=== PATIENT | male | born 1940 | race Caucasian/White ===

== ENCOUNTER → 2021-01-21 11:30 | Outpatient (BNVA) | payer MEDICARE, SELFPAY | PROVIDERS: PCP Family Medicine; Visit Provider Urology | DX: N40.1 Benign prostatic hyperplasia with lower urinary tract symptoms (principal); N13.8 Other obstructive and reflux uropathy | CPT/HCPCS: 99212 ==

== ENCOUNTER → 2021-01-26 09:26 | Outpatient (BNVA) | payer MEDICARE, SELFPAY | PROVIDERS: PCP Family Medicine; Visit Provider Internal Medicine Endocrinology, Diabetes & Metabolism | DX: E11.21 Type 2 diabetes mellitus with diabetic nephropathy (principal); E11.42 Type 2 diabetes mellitus with diabetic polyneuropathy; E11.22 Type 2 diabetes mellitus with diabetic chronic kidney disease; I12.9 Hypertensive chronic kidney disease with stage 1 through stage 4 chronic kidney disease, or unspecified chronic kidney disease; N18.31 Chronic kidney disease, stage 3a; E04.2 Nontoxic multinodular goiter; E78.5 Hyperlipidemia, unspecified; E55.9 Vitamin D deficiency, unspecified | CPT/HCPCS: 82947; 99212 ==

== ENCOUNTER → 2021-07-21 12:56 | Outpatient (BNVA) | payer MEDICARE, SELFPAY | PROVIDERS: PCP Family Medicine; Visit Provider Urology | DX: N40.1 Benign prostatic hyperplasia with lower urinary tract symptoms (principal); N13.8 Other obstructive and reflux uropathy | CPT/HCPCS: 51798; 99212 ==

== ENCOUNTER → 2021-10-15 08:44 | Outpatient (BNVA) | payer MEDICARE, SELFPAY | PROVIDERS: PCP Family Medicine; Visit Provider Urology | DX: N40.1 Benign prostatic hyperplasia with lower urinary tract symptoms (principal); R39.15 Urgency of urination; N13.8 Other obstructive and reflux uropathy; E11.42 Type 2 diabetes mellitus with diabetic polyneuropathy | CPT/HCPCS: 99212 ==

== ENCOUNTER → 2021-11-26 10:32 | Outpatient (BNVA) | payer MEDICARE, SELFPAY | PROVIDERS: PCP Family Medicine; Visit Provider Urology | DX: N40.1 Benign prostatic hyperplasia with lower urinary tract symptoms (principal); N13.8 Other obstructive and reflux uropathy; R39.15 Urgency of urination | CPT/HCPCS: Q3014 ==

== ENCOUNTER → 2022-01-25 08:05 | Outpatient (BNVA) | payer MEDICARE, SELFPAY | PROVIDERS: PCP Family Medicine; Visit Provider Urology | DX: N40.1 Benign prostatic hyperplasia with lower urinary tract symptoms (principal); N13.8 Other obstructive and reflux uropathy; R39.15 Urgency of urination; D17.71 Benign lipomatous neoplasm of kidney; E11.42 Type 2 diabetes mellitus with diabetic polyneuropathy | CPT/HCPCS: Q3014 ==

== ENCOUNTER 2022-01-27 12:19 | Outpatient (REF) | payer MEDICARE, SELFPAY ==
--- NOTE | ~2022-01-27 | US_ITS ---
EXAMINATION: US THYROID CLINICAL INFORMATION: Nontoxic multinodular goiter. COMPARISON: Ultrasound soft tissue head/neck thyroid dated 05/04/2020, 11/06/2019,03/08/2018. TECHNIQUE: Linear transducer grayscale and color Doppler examination with attention to the region of the thyroid. FINDINGS: SIZE: Measurements of the thyroid lobes and nodules are given in sagittal, anteroposterior and transverse dimensions respectively. Right Thyroid Lobe: 3.1 x 1.8 x 2.1 cm, volume 6.1 mL. Previously 2.9 x 1.3 x 1.4 cm, volume 2.8 mL. Parenchyma: The gland echotexture is heterogeneous. Thyroid vascularity is normal. Left Thyroid Lobe: 4.5 x 3.5 x 3.0 cm, volume 24.7 mL. Previously 3.7 x 3.1 x 2.5 cm, volume 15.0 mL. Parenchyma: The gland echotexture is homogeneous. Thyroid vascularity is increased. Isthmus: 0.4 cm in maximum AP dimension. Previously 0.3 cm. Estimated total number of nodules greater than or equal to 1 cm: 2. Senior Executive Compensation Analyst nodules are described as follows: 1. Location: Right upper. Size: 1.1 x 1.5 x 1.1 cm, volume 0.9 mL. Previously: 1.2 x 0.9 x 0.9 cm, volume 0.5 mL. Nodule characteristics: Composition: Solid/almost completely solid (2). Echogenicity: Hyperechoic (1). Shape: Taller than wide (3). Margins: Ill-defined (0). Echogenic Foci: None (0). ACR TI-RADS total points: 6 ACR TI-RADS category: 4 Significant change in size (>/= 20% in 2 dimensions and minimal increase of 2 mm or 50% or greater increase in volume): None Change in features: None Change in ACR TI-RADS risk category: Not applicable 2. Location: Left mid. Size: 3.1 x 2.9 x 2.8 cm, volume 13.2 mL. Previously: 3.0 x 2.2 x 2.4 cm, volume 8.3 mL. Nodule characteristics: Composition: Solid (2). Echogenicity: Hyperechoic (1). Shape: Taller than wide (3). Margins: Smooth (0). Echogenic Foci: None (0). ACR TI-RADS total points: 6 ACR TI-RADS category: 4 Significant change in size (>/= 20% in 2 dimensions and minimal increase of 2 mm or 50% or greater increase in volume): None Change in features: None Change in ACR TI-RADS risk category: Not applicable There are small right lobe cysts. Several nodules documented previously are not visualized at this time. NODES: No lymphadenopathy is seen in the tissue surrounding the thyroid gland. US/US thyroid IMPRESSION: Enlarged and slightly hypervascular left thyroid lobe with a heterogeneous right thyroid lobe but normal in size. Bilateral solid thyroid nodules with largest in midpole left lobe appears stable. By TI-RADS criteria a fine-needle biopsy is recommended of both nodules. 2 tiny cysts in the right lobe.
== END 2022-01-27 12:20 | disposition home or self-care (01) ==
LOC: HO.US 12:19
PROVIDERS: Visit Provider Internal Medicine Endocrinology, Diabetes & Metabolism
DX: E04.2 Nontoxic multinodular goiter (principal)
CPT/HCPCS: 76536

== ENCOUNTER → 2022-04-29 10:52 | Outpatient (BNVA) | payer MEDICARE, SELFPAY | PROVIDERS: PCP Family Medicine; Visit Provider Internal Medicine Endocrinology, Diabetes & Metabolism | DX: E11.21 Type 2 diabetes mellitus with diabetic nephropathy (principal); E04.2 Nontoxic multinodular goiter | CPT/HCPCS: 82947; 99212 ==

== ENCOUNTER → 2022-10-14 11:21 | Outpatient (BNVA) | payer MEDICARE, SELFPAY | PROVIDERS: PCP Family Medicine; Visit Provider Nurse Practitioner Family | DX: N40.1 Benign prostatic hyperplasia with lower urinary tract symptoms (principal); N13.8 Other obstructive and reflux uropathy; D17.71 Benign lipomatous neoplasm of kidney | CPT/HCPCS: 51798; 99212 ==

== ENCOUNTER 2023-02-16 10:08 | Outpatient (REF) | payer MEDICARE, SELFPAY ==
--- NOTE | ~2023-02-16 | US_ITS ---
EXAMINATION: US RETROPERITONEAL LIMITED (RENAL ONLY) CLINICAL INFORMATION: Benign lipomatous neoplasm of kidney. COMPARISON: None available. TECHNIQUE: Real-time imaging of the kidneys. FINDINGS: RIGHT KIDNEY: 11.0 x 6.4 x 5.7 cm (SAG x AP x TRV). Lobular renal contour which may reflect areas of parenchymal cortical scarring. Renal cortical thickness is normal. No calculi or focal parenchymal lesions. No hydronephrosis. 1 cm echogenic avascular renal lesion which may reflect a small angiomyolipoma. LEFT KIDNEY: 11.3 x 6.2 x 4.5 cm (SAG x AP x TRV). The kidney is normal in size, contour, and echogenicity. Renal cortical thickness is normal. No calculi or focal parenchymal lesions. No hydronephrosis. US/US retroperitoneal limited IMPRESSION: 1. A 1 cm echogenic avascular right renal lesion which may reflect a small angiomyolipoma. 2. Lobular right renal contour which may reflect areas of parenchymal cortical scarring.
== END 2023-02-16 10:09 | disposition home or self-care (01) ==
LOC: HO.US 10:08
PROVIDERS: PCP Family Medicine; Visit Provider Nurse Practitioner Family
DX: D17.71 Benign lipomatous neoplasm of kidney (principal); N40.1 Benign prostatic hyperplasia with lower urinary tract symptoms; N13.8 Other obstructive and reflux uropathy
CPT/HCPCS: 76775

== ENCOUNTER 2023-04-14 09:57 | Outpatient (AMB) | payer MEDICARE, SELFPAY ==
--- NOTE | 2023-04-14 10:17 | A.OFFVIS_ITS ---
Intake Intake Visit Reasons: 6m follow up/PVR(SET) Intake Note: Patient is present for follow up PVR/BPH/Microhematuria/Urinary Urgency (imaging 02/16/23) Urology Medication: Finasteride, Tamsulosin, Tolterodine Blood Thinner:Coumadin PVR: 0ml's Fur Puller Required: No Accompanied by: Self / Same As Patient Allergies No Known Allergies Allergy (Verified 04/14/23 10:50) Medication List - Last Reconciled 04/14/23 by KRISTY Jack- blood sugar diagnostic As directed carvedilol 25 mg PO BID finasteride 5 mg PO DAILY 90 days lancets (FreeStyle Lancets) As directed lisinopril 40 mg PO DAILY metformin 500 mg PO BID pravastatin 20 mg PO BEDTIME 90 days sacubitril-valsartan 24-26 mg (Entresto) 1 tab PO BID tamsulosin 0.4 mg PO BEDTIME 90 days tolterodine ER 2 mg PO DAILY 90 days travoprost 0.004% 1 drp ophthalmic (eye) BEDTIME warfarin 3.75 - 7.5 mg PO DAILY HPI HPI Comments History of Present Illness Details Aakash Henderson is a pleasant 82 year old male patient of Dr. Salinas. He has a past medical history of CKD stage 3, diabetes type 2, dyslipidemia, hypertension, and vitamin-D deficiency. He presents to the office today for follow-up of his benign prostatic hyperplasia as well as angiolipoma. Patient reports to be doing overall or well regarding his urination when taking his urological medications. He reports compliance with all urological meds medications which include 5 mg of finasteride daily, Flomax 0.4 mg at bedtime and toldoleradine 2 mg a day. Patient reports he is extremely happy with the status of his urination. He reports when he sits to urinate he feels bladder completely empties versus standing to urinate. Patient denies urological issues at this time. In office urinalysis results reviewed with the patient today. PVR 0 mL. Recent renal imaging results reviewed with the patient today. A 1 cm echogenic avascular right renal lesion which may reflect a small angiolipoma is noted. Renal Angiomyolipoma ?minimal progression on imaging. ?The renal mass was diagnosed incidentally, during evaluation for, GI symptoms.?Imaging included 05/19 , a renal ultrasound, showing a solid mass, 1 cm in size, on the right ? 11/20 , a CT (computed tomography) scan of the abdomen/pelvis 0.5cm on right ? 11/21 , a renal ultrasound small than 1 cm described on right side. Unchanged in past 2 years. Possible AML.? - 11/22 renal ultrasound 1 cm lower pole right stable AML lesion - 03/24 renal ultrasound right 1cm lower pole angiolipoma. ?Prior treatment(s) included surveillance.?The diagnosis was renal cell carcinoma.?Current symptoms include? hematuria? No ? dysuria? No ? fever? No ? chills? No ?Follow up imaging includes renal US in 12m LAKESHIA offered however deferred. Patient reports to be following PSAs with primary care doctor through [facility]. Will attempt to obtain PSA. [facility] Medical History CKD (chronic kidney disease) stage 3, GFR 30-59 ml/min Diabetes type 2, controlled Diabetic polyneuropathy associated with type 2 diabetes mellitus Dyslipidemia Hypertension Non-toxic multinodular goiter Renal angiomyolipoma Vitamin D deficiency Surgical History History of surgery Family History Mother No problems noted. Father No problems noted. Social History Alcohol intake: former Patient Tobacco Use Status: Former Tobacco user Review of Systems Const Reports as per HPI Eyes Reports no additional complaints ENT Reports no additional complaints Card Reports no additional complaints Resp Reports no additional complaints GI Reports no additional complaints Reports as per HPI Musc Reports no additional complaints Neuro Reports no additional complaints Psych Reports no additional complaints Endo Details: patient reports having diabetes Reports as per HPI Physical Exam Const General: cooperative, healthy appearing, comfortable, no acute distress, well developed, alert and awake Nutritional Appearance: overweight Orientation/consciousness: patient oriented x3 Limitations: no limitations HEENT Head: Yes normal to inspection Ears: other (hard of hearing ) Eyes General: appearance normal, both eyes and all related structures Neck Neck: Yes normal visual inspection and Yes trachea midline Chest Chest palpation & inspection: normal inspection of the chest Resp Effort & Inspection: normal respiratory effort and able to speak in complete sentences Cardio Rate: regular rate GI Inspection: Yes normal to inspection (round ) General: Yes no CVA tenderness Back/Spine/Pelvis Back: no CVA tenderness Neuro General: patient oriented x3 Extrem General: Yes normal to inspection Psych Appearance: grossly normal and well kempt Mental Status: mental status grossly normal Speech and movement: Normal speech and movement present and Clear speech present Affect: normal affect Attitude: cooperative Thought process: Normal thought process present Thought content: Normal thought content present Insight: Fair insight present (Psych) Judgement: Fair judgement present (Psych) Office Procedures Post Void Residual Post Residual Void Post Void Residual (PVR): 0 [id number] Void Residual by ultrasound Results AMB Urinalysis, Automated UA Leukoctes 0 Tim/uL Last Edit by FutureAdvisor on 04/14/23 10:40 UA Nitrite Last Edit by FutureAdvisor on 04/14/23 10:40 UA Urobilinogen 0.2 mg/dL Last Edit by FutureAdvisor on 04/14/23 10:40 UA Protein 0 mg/dL Last Edit by FutureAdvisor on 04/14/23 10:40 UA pH 6.0 Last Edit by FutureAdvisor on 04/14/23 10:40 UA Blood 0 Jonathan/uL Last Edit by FutureAdvisor on 04/14/23 10:40 UA Specific [place] 1.015 Last Edit by FutureAdvisor on 04/14/23 10:40 UA Ketone Last Edit by FutureAdvisor on 04/14/23 10:40 UA Bilirubin 0 mg/dL Last Edit by FutureAdvisor on 04/14/23 10:40 UA Glucose 1000 mg/dL Last Edit by FutureAdvisor on 04/14/23 10:40 Results Reviewed Results Reviewed: Laboratory Last Values Urine pH (Auto) 6.0 04/14/23 10:19 Specific [place] (Auto) 1.015 04/14/23 10:19 Urine Protein (Auto) 0 mg/dL 07/14/23 10:19 Glucose (UA)(Auto) 1000 mg/dL 04/14/23 10:19 Urine Blood (Auto) 0 Jonathan/uL 04/14/23 10:19 Urine Bilirubin (Auto) 0 mg/dL 04/14/23 10:19 Urine Urobilinogen (Auto) 0.2 mg/dL 04/14/23 10:19 Leukocyte Esterase (Auto) 0 Tim/uL 04/14/23 10:19 Date of Service: 02/16/23 EXAMINATION: US RETROPERITONEAL LIMITED (RENAL ONLY) CLINICAL INFORMATION: Benign lipomatous neoplasm of kidney. COMPARISON: None available. TECHNIQUE: Real-time imaging of the kidneys.? FINDINGS: RIGHT KIDNEY: 11.0 x 6.4 x 5.7 cm (SAG x AP x TRV). Lobular renal contour which may reflect areas of parenchymal cortical scarring. Renal cortical thickness is normal. No calculi or focal parenchymal lesions. No hydronephrosis. 1 cm echogenic avascular renal lesion which may reflect a small angiomyolipoma. LEFT KIDNEY: 11.3 x 6.2 x 4.5 cm (SAG x AP x TRV). The kidney is normal in size, contour, and echogenicity. Renal cortical thickness is normal. No calculi or focal parenchymal lesions. No hydronephrosis. US/US retroperitoneal limited IMPRESSION: 1.? A 1 cm echogenic avascular right renal lesion which may reflect a small angiomyolipoma. 2.? Lobular right renal contour which may reflect areas of parenchymal cortical scarring. Assessment & Plan Assessment & Plan (1) Renal angiomyolipoma: Code(s): D17.71 - Benign lipomatous neoplasm of kidney (2) BPH w urinary obs/LUTS: Code(s): N40.1 - Benign prostatic hyperplasia with lower urinary tract symptoms; N13.8 - Other obstructive and reflux uropathy Plan In office urinalysis results reviewed with the patient today; as noted above. Recent renal ultrasound results reviewed with the patient today; as noted above. Patient reports to be happy with his current voiding parameters on 5 mg of finasteride, 0.4 mg of tamsulosin and 2 mg of tolterodine daily; Will continue. Call to [facility] for PSA records for continuity of care however none on record; call to patient he is aware and will get PSA drawn PSA ordered. Renal ultrasound in 1 year Follow-up in 1 year with imaging to be completed prior; or sooner with any issues, concerns, and or questions. Orders: Orders US renal BI 364 Days D17.71 - Benign lipomatous neoplasm of kidney Prostate Specific Antigen 04/14/23 N13.8 - Other obstructive and reflux uropathy, N40.1 - Benign prostatic hyperplasia with lower urinary tract symptoms AMB Urinalysis Automated 04/14/23 Z13.9 - Encounter for screening, unspecified AMB Post Void Residual by ultrasound 04/14/23 R39.15 - Urgency of urination Patient Instructions: The patient had an opportunity to ask questions regarding the treatment plan. All questions were answered. Physical exam, labs, and imaging were discussed and reviewed in detail. As well as risks, benefits, and discussion of treatment choices. No major barriers to understanding were identified. The patient expressed understanding and agreement with the above treatment plan. The patient was made aware they should contact our office by phone for worsening of their current condition, the appearance of new symptoms, or with any questions or concerns. Compliance is encouraged with any medications and follow up testing that is ordered. It is a privilege to be allowed the opportunity to participate in? your urological care.? Again, if you have any questions or concerns If you have any questions or concerns please do not hesitate to contact me. The office is [phone]. This note is constructed using voice recognition software. While every effort has been made to ensure accuracy pomology teacher errors may have been included. Yours sincerely, UGO Jack Coding Level of Care Code Est Pt Level 3 (32257) Diagnoses Renal angiomyolipoma D17.71 BPH w urinary obs/LUTS N40.1; N13.8 CPT Codes Post Residual Void - PVR CPT Code: 39491-Dxez Void Residual by ultrasound ([id number])
== END 2023-04-14 10:48 | disposition home or self-care (01) ==
PROVIDERS: Visit Provider Nurse Practitioner Family
DX: D17.71 Benign lipomatous neoplasm of kidney (principal); N40.1 Benign prostatic hyperplasia with lower urinary tract symptoms; N13.8 Other obstructive and reflux uropathy
CPT/HCPCS: 99213

== ENCOUNTER → 2023-04-14 09:57 | Outpatient (BNVA) | payer MEDICARE, SELFPAY | PROVIDERS: Visit Provider Nurse Practitioner Family | DX: D17.71 Benign lipomatous neoplasm of kidney (principal); N40.1 Benign prostatic hyperplasia with lower urinary tract symptoms; N13.8 Other obstructive and reflux uropathy | CPT/HCPCS: 51798; 99212 ==

== ENCOUNTER 2024-07-08 10:40 | Outpatient (REF) | payer MEDICARE, SELFPAY ==
--- NOTE | ~2024-07-08 | US_ITS ---
EXAMINATION: US RETROPERITONEAL LIMITED (RENAL ONLY) CLINICAL INFORMATION: Benign lipomatous neoplasm of kidney. COMPARISON: Renal ultrasound 02/16/2023. TECHNIQUE: Real-time imaging of the kidneys. FINDINGS: RIGHT KIDNEY: 10.2 x 5.7 x 6.0 cm (SAG x AP x TRV). The kidney is normal in size, contour, and echogenicity. Renal cortical thickness is normal. No renal calculi or hydronephrosis. Echogenic lesion in the lower pole right kidney possibly AML measures 8 x 7 x 8 mm. LEFT KIDNEY: 9.9 x 5.8 x 5.2 cm (SAG x AP x TRV). The kidney is normal in size, contour, and echogenicity. Renal cortical thickness is normal. No calculi or focal parenchymal lesions. No hydronephrosis. US/US renal BI IMPRESSION: 1. Echogenic lesion in the lower pole right kidney measure up to 8 mm probably AML. If patient is high-risk may consider correlation with follow-up CT scan or MRI, if not performed follow-up ultrasound in 6 months recommended. 2. No ultrasound evidence of kidney stones or hydronephrosis. Electronically signed by: Charity Quinones MD 08/18/2024 07:46 PM EST
== END 2024-07-08 10:41 | disposition home or self-care (01) ==
LOC: HO.US 10:40
PROVIDERS: PCP Family Medicine; Visit Provider Nurse Practitioner Family
DX: D17.71 Benign lipomatous neoplasm of kidney (principal)
CPT/HCPCS: 76775

== ENCOUNTER 2024-12-11 10:56 | Outpatient (AMB) | payer MEDICARE, MEDICAID, SELFPAY ==
--- NOTE | 2024-12-11 11:03 | MHC.OFFVIS ---
Intake Visit Reasons: PSA Follow Up(Set) Intake Note: Patient is present to office today for follow up/PSA Urology Medication: Finasteride, Tamsulosin, Tolterodine Blood Thinner:Warfarin Allergy to Antibiotic:none PVR: 64ml's Screw Machine Operator Single Spindle Required: No Accompanied by: Self / Same As Patient Allergies No Known Allergies Allergy (Verified 12/11/24 11:37) Medication List - Last Reconciled 12/11/24 by KRISTY Jack-LOVELY blood sugar diagnostic As directed carvedilol 25 mg PO BID finasteride 5 mg PO DAILY 90 days lancets (FreeStyle Lancets) As directed lisinopril 40 mg PO DAILY metformin 500 mg PO BID pravastatin 20 mg PO BEDTIME 90 days sacubitril-valsartan 24-26 mg (Entresto) 1 tab PO BID tamsulosin 0.4 mg PO BEDTIME 90 days tolterodine ER 2 mg PO DAILY travoprost 0.004% 1 drp ophthalmic (eye) BEDTIME warfarin 3.75 - 7.5 mg PO DAILY HPI Comments Details: Aakash Henderson is a pleasant 84 year old male patient of Dr. Salinas. He has a past medical history of CKD stage 3, diabetes type 2, dyslipidemia, hypertension, and vitamin-D deficiency. He presents to the office today for follow-up of his benign prostatic hyperplasia as well as angiolipoma. In discussion with the patient today reports to be doing and feeling well. He reports compliance with finasteride, Flomax, and tolterodine as prescribed. He does discuss having had 2-3 episodes of urinary/fecal incontinence since his last office visit here approximately 8 months ago. In discussion with the patient today regarding further treatment options he feels these episodes are infrequent in his self managing. He otherwise denies any bothersome urinary issues or concerns. He denies nocturia, hematuria, dysuria, foul smelling urine, changes to urinary stream, flank pain, fever, and or chills. He is happy with his current voiding parameters. In office urinalysis results reviewed the patient today. PVR 64 mL. Patient with a history of angiolipoma. Last renal ultrasound 07/25 notes echogenic lesion in the lower pole of the right kidney measuring 8 mm probable AML. Radiology recommends follow-up interval surveillance monitoring. Recent PSA results reviewed with the patient today 10/26 0.8. He also discusses attempting to make new patient appointment with ENT as he suffers from hearing loss. He otherwise offers no other issues or concerns at this time. PREVIOUS OFFICE NOTE: Renal Angiomyolipoma ?minimal progression on imaging. ?The renal mass was diagnosed incidentally, during evaluation for, GI symptoms.?Imaging included 05/19 , a renal ultrasound, showing a solid mass, 1 cm in size, on the right ? 11/20 , a CT (computed tomography) scan of the abdomen/pelvis 0.5cm on right ? 11/21 , a renal ultrasound small than 1 cm described on right side. Unchanged in past 2 years. Possible AML.? - 11/22 renal ultrasound 1 cm lower pole right stable AML lesion - 03/24 renal ultrasound right 1cm lower pole angiolipoma. ?Prior treatment(s) included surveillance.?The diagnosis was renal cell carcinoma.?Current symptoms include? hematuria? No ? dysuria? No ? fever? No ? chills? 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 Father No problems noted. Social History Alcohol intake: former Patient Tobacco Use Status: Former Tobacco user Review of Systems Const Reports as per HPI Eyes Reports no additional complaints ENT Reports no additional complaints Card Reports no additional complaints Resp Reports no additional complaints GI Reports no additional complaints Reports as per HPI Musc Reports no additional complaints Neuro Reports no additional complaints Psych Reports no additional complaints Endo Details: patient reports having diabetes Reports as per HPI Physical Exam Const General: cooperative, healthy appearing, comfortable, no acute distress, well developed, alert and awake Nutritional Appearance: overweight Orientation/consciousness: patient oriented x3 Limitations: ambulation with cane HEENT Head: Yes normal to inspection Ears: other (hard of hearing ) Eyes General: appearance normal, both eyes and all related structures Neck Neck: Yes normal visual inspection and Yes trachea midline Chest Chest palpation & inspection: normal inspection of the chest Resp Effort & Inspection: normal respiratory effort and able to speak in complete sentences Cardio Rate: regular rate GI Inspection: Yes normal to inspection (round ) General: Yes no CVA tenderness Back/Spine/Pelvis Back: no CVA tenderness Neuro General: patient oriented x3 Extrem General: Yes normal to inspection Psych Appearance: grossly normal and well kempt Mental Status: mental status grossly normal Speech and movement: Normal speech and movement present and Clear speech present Affect: normal affect Attitude: cooperative Thought process: Normal thought process present Thought content: Normal thought content present Insight: Fair insight present (Psych) Judgement: Fair judgement present (Psych) Office Procedures Post Void Residual Post Residual Void Post Void Residual (PVR): [id number] Void Residual by ultrasound Results AMB Urinalysis, Automated UA Leukoctes 0 Tim/uL Last Edit by Cheryl Terry on 12/11/24 11:45 UA Nitrite Negative Last Edit by Cheryl Terry on 12/11/24 11:45 UA Urobilinogen 3.5 mg/dL Last Edit by Cheryl Terry on 12/11/24 11:45 UA Protein 1 mg/dL Last Edit by Cheryl Terry on 12/11/24 11:45 UA pH 6.0 Last Edit by Cheryl Terry on 12/11/24 11:45 UA Blood 0 Jonathan/uL Last Edit by Cheryl Terry on 12/11/24 11:45 UA Specific [place] 1.015 Last Edit by Cheryl Terry on 12/11/24 11:45 UA Ketone Negative Last Edit by Cheryl Terry on 12/11/24 11:45 UA Bilirubin 0 mg/dL Last Edit by Cheryl Terry on 12/11/24 11:45 UA Glucose 60 mg/dL Last Edit by Cheryl Terry on 12/11/24 11:45 Assessment & Plan Assessment & Plan (1) Renal angiomyolipoma: Code(s): D17.71 - Benign lipomatous neoplasm of kidney Category: Medical Plan In office urinalysis results reviewed with the patient today; as noted above. PVR 64 mL. Continue finasteride, Flomax, and tolterodine as prescribed. Recent PSA results reviewed with the patient today. Will obtain renal ultrasound for surveillance monitoring angiolipoma. Patient currently denies any bothersome urinary issues or concerns. He reports be happy with current voiding parameters. Follow-up in 3 months with imaging and PVR; or sooner with any issues, concerns, and or questions. Orders: Orders AMB Urinalysis Automated Today Z13.9 - Encounter for screening, unspecified AMB Post Void Residual by ultrasound Today R39.15 - Urgency of urination US renal BI Today D17.71 - Benign lipomatous neoplasm of kidney Patient Instructions: The patient had an opportunity to ask questions regarding the treatment plan. All questions were answered. Physical exam, labs, and imaging were discussed and reviewed in detail. As well as risks, benefits, and discussion of treatment choices. No major barriers to understanding were identified. The patient expressed understanding and agreement with the above treatment plan. The patient was made aware they should contact our office by phone for worsening of their current condition, the appearance of new symptoms, or with any questions or concerns. Compliance is encouraged with any medications and follow up testing that is ordered. It is a privilege to be allowed the opportunity to participate in? your urological care.? Again, if you have any questions or concerns If you have any questions or concerns please do not hesitate to contact me. The office is [phone]. This note is constructed using voice recognition software. While every effort has been made to ensure accuracy stone rougher errors may have been included. Yours sincerely, UGO Jack Coding Level of Care Code Est Pt Level 3 (66229) Complex EM visit Add On G2211 Diagnoses Renal angiomyolipoma D17.71 CPT Codes Post Residual Void - PVR CPT Code: 03273-Kxah Void Residual by ultrasound ([id number])
--- OUTSIDE RECORDS SUMMARY | 2024-12-11 12:46 | XMS_ITS | Encounter Summary ---
Author Organization [facility] Address [address] [facility] [address] [place] [address] Phone Care Team Providers Care Consulting Sales Executive Name Role Phone Tc Salinas DO Primary Care Provider [phone] Reason for Visit * Reason Comments Med Refill Encounter Details Date Type Department Care Team (Late st Contact Info) Description 12/11/2024 Refill [facility] [address] [facility] [address] [place] [address] Anton Kidd MD [address] [facility] [address] [place] [address] Type 2 diabetes mellitus without complication (HCC); Hypertensive disorder Social History Tobacco Use Types Packs/Day Years Used Date Smoking Tobacco: Former Cigarettes 0 10/02/1962 - 10/02/1965 Smokeless Tobacco: Never Comments:Smoking History Inf o:Unknown Alcohol Use Standard Drinks/Week Comments No 0 (1 standard drink = 0.6 oz pur e alcohol) Sex and Gender Information Value Date Recorded Sex Assigned at Not on file Legal Sex Male 4:48 PM EST Gender Identity Not on file Sexual Orientation Not on file documented as of this encounter Plan of Treatment Not on file documented as of this encounter Visit Diagnoses Diagnosis Type 2 diabetes mellitus without complication (HCC) Hypertensive disorder documented in this encounter Care Teams Consulting Sales Executive Relationship Specialty Start Date End Date Tc Salinas DO [address] [place] [address] PCP - General 10/12/20 documented as of this encounter
--- OUTSIDE RECORDS SUMMARY | 2024-12-11 12:46 | XMS_ITS | Clinical Summary ---
Author Organization [facility] Address [address] [place] [address] Care Team Providers Care It Security Engineer Name Role Phone Unavailable Primary Care Provider Unavailabl e Social History Tobacco Use Types Packs/Day Years Used Date Smoking Tobacco: Never Assessed Sex and Gender Information Value Date Recorded Sex Assigned at Not on file Legal Sex Male 8:03 PM EDT Gender Identity Not on file Sexual Orientation Not on file Plan of Treatment Health Maintenance Due Date Last Done Comments DTaP/Tdap/Td (1 - Tdap) 1956 Pneumococcal 50+ years (1 of 1 - PCV) 1988 Zoster (Shingrix) (1 of 2) 1988 RSV (1 - 1-dose 75+ series) 2013 COVID-19 Vaccine (2023-2 5 season) 2024 Influenza (#1) 2024 HPV Vaccine Aged Out No longer eligi ble based on patient's age to complete this topic Hep A Aged Out No longer eligi ble based on patient's age to complete this topic Hep B Aged Out No longer eligi ble based on patient's age to complete this topic Hib Aged Out No longer eligi ble based on patient's age to complete this topic Meningococcal ACWY Aged Out No longer eligible based on patient's age to complete this topic Zoster (Zostavax) Discontinued
--- OUTSIDE RECORDS SUMMARY | 2024-12-11 12:46 | XMS_ITS | Clinical Summary ---
Author Organization [facility] Address [address] [facility] [address] [place] [address] Phone Care Team Providers Care Sheet Finisher Name Role Phone SalinasOriony Zeenat VIERA Primary Care Provider [phone] Allergies No known active allergies Medications ergocalciferol 1.25 MG (86451 UT) capsule 1 Active glucose blood (FREESTYLE LITE) test strip Test blood sugars daily 6 Active OneTouch Verio test strip 1 Active Lancets (freestyle) lancets Test blood sugars daily 6 Active pravastatin (PRAVACHOL) 20 MG tablet Comments: Filled Date: Nov 28 2018 12:00AM Duration: 90 Active tamsulosin (FLOMAX) 0.4 MG 24 hr capsule Comments: Filled Date: Nov 14 2018 12:00AM Duration: 90 Active rivaroxaban (XARELTO) 20 MG tablet Take 20 mg by mouth 1 (one) time each day with dinner Active sacubitril-valsar marmolejo (Entresto) 24-26 MG per tablet Take 1 tablet by mouth 2 (two) times a day Active warfarin (COUMADIN) 1 MG tablet Take 1 mg by mouth 1 (one) time each day Take as directed per After Visit Summary. 3.75 mg every other day and 7 on the other days Active carvedilol (COREG) 25 MG tabletIndications :Type 2 diabetes mellitus without complication (HCC),Hypertensiv e disorder Take 1 tablet (25 mg total) by mouth in the morning and 1 tablet (25 mg total) in the evening. Take with meals. 180 tablet 3 4 Active Active Problems Problem Noted Date Diagnosed Date Chronic kidney disease stage 3 03/21/2022 Diabetes mellitus 03/21/2022 Hypertensive disorder 03/21/2022 Hyperlipidemia 03/20/2016 Tubular adenoma 03/20/2016 Overview (03/21/2022): CN 1.26.09 Vitamin D deficiency 03/20/2016 Long-term current use of anticoagulant 6 Enlarged prostate 11/27/2015 Deep venous thrombosis 11/27/2015 Overview (03/21/2022): DVT LEFT LOWER EXTREMITY Type 2 diabetes mellitus without complication Encounters Date Type Department Care Team Description 12/11/2024 Refill [facility] [address] [place] [address] Anton Kidd MD Type 2 diabetes mellitus without complication (HCC); Hypertensive disorder from Last 3 Months Family History Medical History Relation Comments Diabetes Mother Hypertension Mother Relation Status Comments Father Mother Social History Tobacco Use Types Packs/Day Years Used Date Smoking Tobacco: Former Cigarettes 0 10/02/1962 - 10/02/1965 Smokeless Tobacco: Never Tobacco Cessation:Counseling Given: Not Answered Comments:Smoking History Info:Unknown Alcohol Use Standard Drinks/Week Comments No 0 (1 standard drink = 0.6 oz pur e alcohol) Sex and Gender Information Value Date Recorded Sex Assigned at Not on file Legal Sex Male 4:48 PM EST Gender Identity Not on file Sexual Orientation Not on file Last Filed Vital Signs Vital Sign Reading Time Taken Comments Blood Pressure 148/72 03/29/2023 9:59 AM EDT Pulse 80 03/29/2023 9:59 AM EDT Temperature - - Respiratory Rate - - Oxygen Saturation 95% 03/29/2023 9:59 AM EDT Inhaled Oxygen Concentration - - Weight 104 kg (228 lb 9.6 oz) 03/29/2023 9:59 AM EDT Height 180.3 cm (5' 11 ) 03/21/2022 1:59 PM EDT Body Mass Index 31.88 03/21/2022 1:59 PM EDT Plan of Treatment Health Maintenance Due Date Last Done Comments Pneumococcal Vaccine: 65+ Years (1 of 2 - PCV) 1944 Diabetes: Ophthalmology Exam 10/30/2020 Diabetes: Pedal Pulse Checked 10/30/2020 Diabetes: Sensory Foot Exam 10/30/2020 Diabetes: Visual Foot Exam 10/30/2020 Diabetes: Hemoglobin A1C 12/06/2020 020, 02/05/2020, 07/12/2019, Additional history exists Influenza Vaccine (#1) 2024 Hepatitis B Vaccine Aged Out No longe r eligible based on patient's age to complete this topic Procedures Procedure Name Priority Date/Time Associated Diagnosis Comments HEMOGLOBIN A1C Routine 09/07/2020 9:19 AM EST from Last 3 Months or Most Recently Relevant to Health Maintenance Results * (ABNORMAL) Hemoglobin A1c (09/07/2020 9:19 AM EST) Hemoglobin A1C 6.6(H) (4.0-5.6) % [facility] 3 Comment: MONITORING: In known diabetic patients, hemoglobin A1c targets should be discussed with health care provider. DIAGNOSTIC USE: ??The [place] Diabetes Association (ADA) and the World Health Organization (WHO) recommend the use of HbA1c to diagnose diabetes using a threshold of 6.5%. Patients who have an HbA1c between 5.7% and 6.4% are considered at increased risk for developing diabetes in the future. CAUTION: Falsely low HbA1c results may be observed in patients with hemolytic anemia, homozygous forms of abnormal hemoglobin (e.g. SS, CC, SC), , recent blood loss or hemoglobin F greater than 7%. Fructosamine may be used as an alternate test in these cases. REFERENCE: ADA: Standards of Medical Care in Diabetes 2020, The Journal of Clinical and Applied Research and Education Volume 43, Supplement 1 Testing performed or reported by ~[facility], ~a Service of [facility], ~[address] [facility], [place] [address]~ Cande Mccurdy MD, Steam Fitter Helper~ 09/07/2020 9:19 AM EST Abhishek Cook MD LAB BLOOD ORDERABLES Final Re sult [facility] 3 from Last 3 Months or Most Recently Relevant to Health Maintenance Insurance [facility] Care Teams Sheet Finisher Relationship Specialty Start Date End Date Tc Salinas DO [address] [place] [id number] PCP - General 10/12/20
== END 2024-12-11 11:43 | disposition home or self-care (01) ==
PROVIDERS: PCP Family Medicine; Visit Provider Nurse Practitioner Family
DX: Z13.9 Encounter for screening, unspecified (principal); D17.71 Benign lipomatous neoplasm of kidney
CPT/HCPCS: 99213; G2211

== ENCOUNTER → 2024-12-11 10:56 | Outpatient (BNVA) | payer MEDICARE, SELFPAY | PROVIDERS: PCP Family Medicine; Visit Provider Nurse Practitioner Family | DX: D17.71 Benign lipomatous neoplasm of kidney (principal) | CPT/HCPCS: 51798; 81003; 99212 ==

== ENCOUNTER 2025-03-03 10:40 | Outpatient (REF) | payer MEDICARE, MEDICAID, SELFPAY ==
--- NOTE | ~2025-03-03 | US_ITS ---
CLINICAL HISTORY: D17.71 - Benign lipomatous neoplasm of kidney Exam: Ultrasound of the kidneys. Comparison: July 08, 2024. Findings: Right kidney measures 8.8 x 4.9 x 5.1 cm in size. Unchanged rounded echogenic focus within the lower pole of the right kidney measuring 6 x 6 x 7 mm in size. No hydronephrosis. Generalized increased echotexture throughout the right renal cortex. Left kidney measures 9.8 x 5.2 x 4.6 cm in size. Generalized increased echotexture throughout the left renal cortex without solid mass or hydronephrosis. Impression: 1. Echogenic kidneys bilaterally indicative of medical renal disease. 2. Unchanged rounded increased echotexture within the lower pole of the right kidney. Although nonspecific, angiomyolipoma versus cortical calcification is favored. CT could confirm. This document has been electronically signed by: Dean Rodriguez MD on 03/04/2025 08:21:00
--- OUTSIDE RECORDS SUMMARY | 2025-03-03 11:47 | XMS_ITS | Clinical Summary ---
Author Organization [facility] Address [address] [facility] [address] [place] [address] Phone Care Team Providers Care Health Information Technologist Name Role Phone SalinasOriony Zeenat VIERA Primary Care Provider [phone] Allergies No known active allergies Medications ergocalciferol 1.25 MG (11914 UT) capsule 1 Active glucose blood (FREESTYLE [...] diabetes mellitus without complication (HCC),Hypertensiv e disorder TAKE 1 TABLET BY MOUTH EVERY DAY IN THE MORNING AND IN THE EVENING WITH MEALS 180 tablet 3 5 Active Active Problems Problem Noted Date Diagnosed [...] [facility] [address] [place] [address] Anton Kidd MD Type 2 diabetes mellitus [...] Due Date Last Done Comments Pneumococcal Vaccine: 50+ Years (1 of 2 - PCV) 1957 Diabetes: Ophthalmology Exam 10/30/2020 Diabetes: Pedal Pulse Checked 10/30/2020 Diabetes: Sensory Foot Exam 10/30/2020 Diabetes: Visual Foot Exam 10/30/2020 Diabetes: Hemoglobin A1C 12/06/2020 020, 02/05/2020, 07/12/2019, Additional history exists Influenza Vaccine (Season Ended) 2025 Hepatitis B Vaccine Aged Out No longe r eligible based on patient's age to complete this topic Procedures Procedure Name Priority Date/Time Associated Diagnosis Comments HEMOGLOBIN A1C Routine 09/07/2020 9:19 AM EST from Last 3 Months or Most Recently Relevant to Health Maintenance Results * (ABNORMAL) Hemoglobin A1c (09/07/2020 9:19 AM EST) Hemoglobin A1C 6.6(H) (4.0-5.6) % [facility] 3 Comment: MONITORING: In known diabetic patients, hemoglobin A1c targets should be discussed with health care provider. DIAGNOSTIC USE: ??The [place] Diabetes Association (ADA) and the World Health [...] Supplement 1 Testing performed or reported by ~[facility], ~a Service of [facility], ~[address] [place] [address]~ Cande Mccurdy MD, Electrical Instrumentation Technician~ 09/07/2020 9:19 AM EST us Abhishek Cook MD LAB BLOOD ORDERABLES Final Re sult [facility] 3 from Last 3 Months or Most Recently Relevant to Health Maintenance Insurance [facility] Care Teams Health Information Technologist Relationship Specialty Start Date End Date Tc Salinas DO [address] [place] [address] PCP - General 10/12/20
== END 2025-03-03 10:41 | disposition home or self-care (01) ==
LOC: HO.US 10:40
PROVIDERS: PCP Family Medicine; Visit Provider Nurse Practitioner Family
DX: D17.71 Benign lipomatous neoplasm of kidney (principal)
CPT/HCPCS: 76775

== ENCOUNTER → 2025-03-03 10:43 | Outpatient (BNV) | payer MEDICARE, MEDICAID, SELFPAY | PROVIDERS: PCP Family Medicine; Visit Provider Radiology Diagnostic Radiology | DX: R93.421 Abnormal radiologic findings on diagnostic imaging of right kidney (principal); R93.422 Abnormal radiologic findings on diagnostic imaging of left kidney | CPT/HCPCS: 76775 ==

== ENCOUNTER 2025-03-13 11:42 | Outpatient (AMB) | payer MEDICARE, MEDICAID, SELFPAY ==
--- NOTE | 2025-03-13 11:47 | A.OFFVIS_ITS ---
Intake Visit Reasons: 3m/US/PVR Intake Note: Patient is present to office today for follow up on: renal angioma, PVR, and Ultrasound results Imaging Completed: 03/03/25 Urology Medication: Finasteride, Tamsulosin, Tolterodine Blood Thinner:Warfarin Allergy to Antibiotic:none PVR: 76ml's Blending Tank Helper Required: No Accompanied by: Self / Same As Patient Allergies No Known Allergies Allergy (Verified 03/13/25 13:10) Medication List - Last Reconciled 03/15/25 by UGO Jack blood sugar diagnostic As directed carvedilol 25 mg PO BID finasteride 5 mg PO DAILY 90 days lancets (FreeStyle Lancets) As directed lisinopril 40 mg PO DAILY metformin 500 mg PO BID pravastatin 20 mg PO BEDTIME 90 days sacubitril-valsartan 24-26 mg (Entresto) 1 tab PO BID tamsulosin 0.4 mg PO BEDTIME 90 days tolterodine ER 2 mg PO DAILY travoprost 0.004% 1 drp ophthalmic (eye) BEDTIME warfarin 3.75 - 7.5 mg PO DAILY HPI Comments Details: Aakash Hendreson is a pleasant 84 year old male patient of Dr. Salinas who was accompanied by his HOBBING MACHINE OPERATOR worker at today's office visit. He has a past medical history of CKD stage 3, diabetes type 2, dyslipidemia, hypertension, and vitamin-D deficiency. He presents to the office today for follow-up of his benign prostatic hyperplasia as well as angiolipoma. In discussion with the patient today he reports last week having seeked emergency room care through [facility] for ongoing episodes of diarrhea he had been experiencing. He discusses these episodes have since subsided as he has changed his diet. He reports having had a CT of the abdomen and these results were obtained and reviewed 03/26 bilateral kidneys and ureters no hydronephrosis, stones, or suspicious masses seen. Small hypodensities that are too small to characterize are noted requiring no dedicated follow-up. Bladder normal. Per radiology report. However most recent renal imaging results were reviewed with the patient as well as patient with a history of angiolipoma as. These results were reviewed and communicated with the patient today. Right kidney with unchanged rounded echogenic focus within the lower pole of the right kidney measuring 7 mm in size. Otherwise no renal calculi or hydronephrosis noted bilaterally. He reports compliance with finasteride, Flomax, and tolterodine as prescribed. He currently denies any bothersome urinary issues or concerns. He denies nocturia, hematuria, dysuria, foul smelling urine, changes to urinary stream, flank pain, fever, and or chills. He is happy with his current voiding parameters. In office urinalysis results reviewed the patient today. PVR 76 mL. Patient with a history of angiolipoma. PSAs are as follows: 10/26 0.8. He otherwise denies any other issues or concerns at this time. PREVIOUS OFFICE NOTE: Renal Angiomyolipoma ?minimal progression on imaging. ?The renal mass was diagnosed incidentally, during evaluation for, GI symptoms.?Imaging included 05/19 , a renal ultrasound, showing a solid mass, 1 cm in size, on the right ? 11/20 , a CT (computed tomography) scan of the abdomen/pelvis 0.5cm on right ? 11/21 , a renal ultrasound small than 1 cm described on right side. Unchanged in past 2 years. Possible AML.? - 11/22 renal ultrasound 1 cm lower pole right stable AML lesion - 03/24 renal ultrasound right 1cm lower pole angiolipoma. ?Prior treatment(s) included surveillance.?The diagnosis was renal cell carcinoma.?Current symptoms include? hematuria? No ? dysuria? No ? fever? No ? chills? 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 Father No problems noted. Social History Alcohol intake: former Patient Tobacco Use Status: Former Tobacco user Review of Systems Const Reports as per HPI Eyes Reports no additional complaints ENT Reports no additional complaints Card Reports no additional complaints Resp Reports no additional complaints GI Reports no additional complaints Reports as per HPI Musc Reports no additional complaints Neuro Reports no additional complaints Psych Reports no additional complaints Endo Details: patient reports having diabetes Reports as per HPI Physical Exam Const General: cooperative, healthy appearing, comfortable, no acute distress, well de veloped, alert and awake Nutritional Appearance: overweight Orientation/consciousness: patient oriented x3 Limitations: ambulation with cane HEENT Head: Yes normal to inspection Ears: other (hard of hearing ) Eyes General: appearance normal, both eyes and all related structures Neck Neck: Yes normal visual inspection and Yes trachea midline Chest Chest palpation & inspection: normal inspection of the chest Resp Effort & Inspection: normal respiratory effort and able to speak in complete sentences Cardio Rate: regular rate GI Inspection: Yes normal to inspection (round ) General: Yes no CVA tenderness Back/Spine/Pelvis Back: no CVA tenderness Neuro General: patient oriented x3 Extrem General: Yes normal to inspection Psych Appearance: grossly normal and well kempt Mental Status: mental status grossly normal Speech and movement: Normal speech and movement present and Clear speech present Affect: normal affect Attitude: cooperative Thought process: Normal thought process present Thought content: Normal thought content present Insight: Fair insight present (Psych) Judgement: Fair judgement present (Psych) Office Procedures Post Void Residual Post Residual Void Post Void Residual (PVR): [id number] Void Residual by ultrasound Results AMB Urinalysis, Automated UA Leukoctes 0 Tim/uL Last Edit by Raegan Payne MA on 03/13/25 12:19 UA Nitrite Negative Last Edit by Raegan Payne MA on 03/13/25 12:19 UA Urobilinogen 0.2 mg/dL Last Edit by Raegan Payne MA on 03/13/25 12:19 UA Protein 15 mg/dL Last Edit by Raegan Payne, MA on 03/13/25 12:19 UA pH 6.0 Last Edit by Raegan Payne, MA on 03/13/25 12:19 UA Blood 0 Jonathan/uL Last Edit by Raegan Payne, MA on 03/13/25 12:19 UA Specific [place] 1.015 Last Edit by Raegan Payne, MA on 03/13/25 12:19 UA Ketone Negative Last Edit by Raegan Payne, MA on 03/13/25 12:19 UA Bilirubin 0 mg/dL Last Edit by Raegan Payne, MA on 03/13/25 12:19 UA Glucose 1000 mg/dL Last Edit by Raegan Payne, MA on 03/13/25 12:19 Results Reviewed Results Reviewed: Laboratory Last Values Urine pH (Auto) 6.0 03/13/25 11:59 Specific [place] (Auto) 1.015 03/13/25 11:59 Urine Protein (Auto) 15 mg/dL 03/13/25 11:59 Glucose (UA)(Auto) 1000 mg/dL 03/13/25 11:59 Urine Ketones (Auto) Negative 03/13/25 11:59 Urine Blood (Auto) 0 Jonathan/uL 03/13/25 11:59 Urine Nitrite (Auto) Negative 03/13/25 11:59 Urine Bilirubin (Auto) 0 mg/dL 03/13/25 11:59 Urine Urobilinogen (Auto) 0.2 mg/dL 03/13/25 11:59 Leukocyte Esterase (Auto) 0 Tim/uL 03/13/25 11:59 Date of Service: 03/03/25 Procedure(s): US renal BI Findings: Right kidney measures 8.8 x 4.9 x 5.1 cm in size. Unchanged rounded echogenic focus within the lower pole of the right kidney measuring 6 x 6 x 7 mm in size. No hydronephrosis. Generalized increased echotexture throughout the right renal cortex. Left kidney measures 9.8 x 5.2 x 4.6 cm in size. Generalized increased echotexture throughout the left renal cortex without solid mass or hydronephrosis. Impression: 1. Echogenic kidneys bilaterally indicative of medical renal disease. 2. Unchanged rounded increased echotexture within the lower pole of the right kidney. Although nonspecific, angiomyolipoma versus cortical calcification is favored. CT could confirm. Assessment & Plan Assessment & Plan (1) Renal angiomyolipoma: Code(s): D17.71 - Benign lipomatous neoplasm of kidney Category: Medical (2) Urinary urgency: Code(s): R39.15 - Urgency of urination Category: Medical (3) BPH w urinary obs/LUTS: Code(s): N40.1 - Benign prostatic hyperplasia with lower urinary tract symptoms; N13.8 - Other obstructive and reflux uropathy Category: Medical Plan In office urinalysis results with the patient today; as noted above. PVR 76 mL. Patient currently denies any bothersome urinary issues or concerns. He reports be happy with current voiding parameters. Will continue with surveillance monitoring. Recent CT results and renal imaging results reviewed with the patient today; as noted above. We discussed the importance of management and diabetes for improvement overall health and well-being. Will obtain PSA in 6 months. Follow-up in 6 months with PSA and PVR; or sooner with any issues, concerns, and or questions. Orders: Orders 2 AMB Urinalysis Automated 03/13/25 Z13.9 - Encounter for screening, unspecified AMB Post Void Residual by ultrasound 03/13/25 R39.15 - Urgency of urination Prostate Specific Antigen 6 Months N13.8 - Other obstructive and reflux uropathy, N40.1 - Benign prostatic hyperplasia with lower urinary tract symptoms Patient Instructions: The patient had an opportunity to ask questions regarding the treatment plan. All questions were answered. Physical exam, labs, and imaging were discussed and reviewed in detail. As well as risks, benefits, and discussion of treatment choices. No major barriers to understanding were identified. The patient expressed understanding and agreement with the above treatment plan. The patient was made aware they should contact our office by phone for worsening of their current condition, the appearance of new symptoms, or with any questions or concerns. Compliance is encouraged with any medications and follow up testing that is ordered. It is a privilege to be allowed the opportunity to participate in? your urological care.? Again, if you have any questions or concerns If you have any questions or concerns please do not hesitate to contact me. The office is [phone]. This note is constructed using voice recognition software. While every effort has been made to ensure accuracy garageman errors may have been included. Yours sincerely, KRISTY Jack-BC Coding Level of Care Code Est Pt Level 3 (12510) Complex EM visit Add On G2211 Diagnoses Renal angiomyolipoma D17.71 Urinary urgency R39.15 BPH w urinary obs/LUTS N40.1; N13.8 CPT Codes Post Residual Void - PVR CPT Code: 13316-Ikfw Void Residual by ultrasound ([id number])
--- OUTSIDE RECORDS SUMMARY | 2025-03-13 13:50 | XMS_ITS | Clinical Summary ---
Author Organization [facility] Address [address] [facility] [address] [place] [address] Phone Care Team Providers Care Concrete Bucket Hooker Name Role Phone SalinasOriony Zeenat VIERA Primary Care Provider [phone] Allergies No known active allergies Medications ergocalciferol 1.25 MG (27592 UT) capsule 1 Active glucose blood (FREESTYLE [...] [facility] [place] [address] [place] [address] Anton Kidd MD Type 2 diabetes mellitus [...] AM EST) Hemoglobin A1C 6.6(H) (4.0-5.6) % [facility] 3 Comment: MONITORING: In known diabetic patients, hemoglobin A1c targets should be discussed with health care provider. DIAGNOSTIC USE: ??The [place] Diabetes Association (ADA) and the World Health [...] Supplement 1 Testing performed or reported by ~[facility], ~a Service of [facility], ~[address] [place] [address]~ Cande Mccurdy MD, Yard Pipe Grader~ 09/07/2020 9:19 AM EST us Abhishek Cook MD LAB BLOOD ORDERABLES Final Re sult [facility] 3 from Last 3 Months or Most Recently Relevant to Health Maintenance Insurance [facility] Care Teams Concrete Bucket Hooker Relationship Specialty Start Date End Date Tc Salinas DO [address] [place] [address] PCP - General 10/12/20
== END 2025-03-13 12:23 | disposition home or self-care (01) ==
LOC: HO.HUSH 11:42
PROVIDERS: PCP Family Medicine; Visit Provider Nurse Practitioner Family
DX: Z13.9 Encounter for screening, unspecified (principal)

== ENCOUNTER → 2025-03-13 11:42 | Outpatient (BNVA) | payer MEDICARE, MEDICAID, SELFPAY | PROVIDERS: PCP Family Medicine; Visit Provider Nurse Practitioner Family | DX: D17.71 Benign lipomatous neoplasm of kidney (principal); R39.15 Urgency of urination; N40.1 Benign prostatic hyperplasia with lower urinary tract symptoms; N13.8 Other obstructive and reflux uropathy | CPT/HCPCS: 51798; 81003; 99212 ==